=== PATIENT | female | born 1995 | race Caucasian/White ===

== ENCOUNTER 2025-02-01 23:13 | Emergency (ER) | payer MEDICAID ==
[~2025-02-01] VITALS: Ht 160 cm; Wt 107.0 kg
[~2025-02-01 23:13] MED LIST: MELO-100 PO
[2025-02-01 23:18] VITALS: BP 147/87; PULSE 110; RESP 16; O2SAT 98
== END 2025-02-02 03:06 | disposition left against medical advice (07) ==
LOC: ER 23:14
DX: R20.0 Anesthesia of skin (principal); Z53.21 Procedure and treatment not carried out due to patient leaving prior to being seen by health care provider
CPT/HCPCS: 99281